=== PATIENT | female | born 1935 | race Caucasian/White ===

== ENCOUNTER 2020-09-16 15:02 | Inpatient (IN) | payer MEDICARE ==
[~2020-09-16] VITALS: Ht 154.9 cm; Wt 50.8 kg
[2020-09-16 14:30] VITALS: BP 156/66
[2020-09-16] MEDS ORDERED: Z GUARD REMEDY PASTE 57 GM TUBE TOP PRN (16:15)
[2020-09-16] MEDS ORDERED: ATOR10TA PO (16:20)
[2020-09-16] MEDS ORDERED: LISI20TA30 PO (16:20)
[2020-09-16] MEDS ORDERED: CLOP75TA33 PO (16:20)
[2020-09-16] MEDS ORDERED: AMLO10TA59 PO (16:20)
--- NOTE | 2020-09-16 18:00 | NUR ---
Admitted this 85y/o female from [facility] with diagnosis of left facial droop r/o CVA, likely TIA. She is alert, oriented to self and place, not in any form of distress on room air. No noted facial droop, with clear speech. No complain of any pain or discomfort. Noted with left hand skin tear and bruises on bilateral upper and right lower extremities. Assisted with her needs promptly. Call light and frequently used items placed within patient's reach. Routine admission care done. Report received from Rob HERNANDEZ from [facility] and per RN patient fell today and X-Ray of the right leg done with negative result. Dr. Simeon and Dr. Ragsdale made aware of the admission. Call light and frequently used items placed within patient's reach. Will continue to monitor and will endorse accordingly.
[2020-09-16 20:21] VITALS: BP 168/68
--- NOTE | 2020-09-17 03:55 | NUR ---
AAOx2-3 Admitted for possible TIA/left facial droop. No facial droop noted. Speech clear. Continent of bowel and bladder. Kept comfortable. Fall precautions maintained. Denies any pain nor any discomfort. Will monitor patient.
[2020-09-17 06:52] VITALS: BP 173/67
[2020-09-17 08:00] VITALS: BP 163/63
[2020-09-17] MEDS: LISINOPRIL 20 MG TABLET PO SCH (08:41)
[2020-09-17] MEDS: AMLODIPINE 10 MG TABLET PO SCH (08:41)
[2020-09-17] MEDS: CLOPIDOGREL 75 MG TABLET PO SCH (08:41)
--- NOTE | 2020-09-17 12:03 | NUR ---
SW Family Contact: This SW contacted patient's person to notify Sun daughter ([phone], however, the number listed on the facesheet is incorrect.
--- NOTE | 2020-09-17 13:23 | NUR ---
COLLIN PH9 Post Stroke Depression Screening: general ii farmworker met with patient and conducted a PHQ-9 (Post Stroke Depression Screening) in which the patient score of a level of 4 for depression. Patient does not require a psychiatric consult at this time.
--- NOTE | 2020-09-17 13:24 | NUR ---
Social Work Stroke Resources: fabric worker leader met with patient and provided stroke referrals such as: Stroke Family Warmline at (5-602-2-STROKE) and additional information on caring for a stroke survivor ( ). fabric worker leader also educated patient on the signs of Stroke and to immediately call 911. fabric worker leader provided education on the signs of stroke and provided educational packet with information: Dietary food, what stroke is, risks, emotional support, finding support, medical management, and effects of stroke.
--- NOTE | 2020-09-17 15:01 | NUR ---
INTERDISCIPLINARY TEAM CONFERENCE
[2020-09-17 16:16] VITALS: BP 149/71
[2020-09-17 20:00] VITALS: BP 148/64
[2020-09-17] MEDS: ATORVASTATIN 10 MG TABLET PO SCH (20:36)
--- NOTE | 2020-09-17 21:54 | NUR ---
Received pt sleeping comfortably. Aroused easily to verbal stimuli. AAO x2-3. No acute distress noted. Denies pain/ discomfort. Due med given as ordered. Safety measures maintained. Bed alarm on. Call light and personal items within reach. Will continue to monitor.
[2020-09-18 05:16] VITALS: BP 140/75
[2020-09-18] MEDS: LISINOPRIL 20 MG TABLET PO SCH (08:59)
[2020-09-18] MEDS: CLOPIDOGREL 75 MG TABLET PO SCH (09:00)
[2020-09-18] MEDS: AMLODIPINE 10 MG TABLET PO SCH (09:00)
[2020-09-18 16:00] VITALS: BP 147/64
--- NOTE | 2020-09-18 19:00 | NUR ---
RECD PT IN BED,ALERT ORIENTED X3, ABLE TO MAKE NEEDS KNOWN.VERY PLEASANT AND COOPERATIVE. NO ACUTE DISTRESS NOTED. KEPT WARM AND COMFORTABLE.
[2020-09-18 20:00] VITALS: BP 130/69
[2020-09-18] MEDS: ATORVASTATIN 10 MG TABLET PO SCH ×2 (21:52→21:54)
[2020-09-19 08:00] VITALS: BP 155/47
[2020-09-19] MEDS: LISINOPRIL 20 MG TABLET PO SCH (09:12)
[2020-09-19] MEDS: CLOPIDOGREL 75 MG TABLET PO SCH (09:12)
[2020-09-19] MEDS: AMLODIPINE 10 MG TABLET PO SCH (09:12)
[2020-09-19 12:23] LABS: BILIRUBIN,TOTAL 0.8 mg/dL (0.2-1.0); CREATININE 1.3 mg/dL (0.6-1.3); MAGNESIUM 2.5 mg/dL (1.8-2.4); PHOSPHOROUS 2.8 mg/dL (2.5-4.9); POTASSIUM 3.8 mmol/L (3.5-5.1); TOTAL PROTEIN, SERUM 6.6 g/dL (6.4-8.2)
[2020-09-19 13:00] LABS: BASOPHILS # (AUTO) 0.1 K/uL (0.0-8.0); BASOPHILS % (AUTO) 0.6 % (0.0-2.0); EOSINOPHILS # (AUTO) 0.6 K/uL (0.0-0.7); EOSINOPHILS % (AUTO) 6.2 % (0.0-7.0); HEMATOCRIT 38.8 % (31.2-41.9); HEMOGLOBIN 12.4 g/dL (10.9-14.3); LYMPHOCYTES % (AUTO) 10.9 % (20.5-51.5); MEAN CORPUSCULAR HEMOGLOBIN 29.7 uug (24.7-32.8); MEAN CORPUSCULAR HGB CONC 32 g/dL (32.3-35.6); MEAN CORPUSCULAR VOLUME 92.8 fL (75.5-95.3); MONOCYTES # (AUTO) 1.1 K/uL (2.0-10.0); MONOCYTES % (AUTO) 11.4 % (0.0-11.0); NEUTROPHILS # (AUTO) 6.8 K/uL (1.8-8.9); NEUTROPHILS % (AUTO) 70.9 % (38.5-71.5); PLATELET COUNT (AUTO) 223 K/uL (179-408); RED BLOOD CELL COUNT(AUTO) 4.19 MIL/uL (3.63-4.92); WHITE BLOOD COUNT (AUTO) 9.6 K/uL (3.8-11.8)
[2020-09-19 14:33] VITALS: BP 146/43
--- NOTE | 2020-09-19 15:13 | NUR ---
INDIVIDUALIZED PLAN OF CARE
--- NOTE | 2020-09-19 19:32 | NUR ---
all medications given as ordered. pt resting in bed, all medications given. will endorse to oncoming nurse
[2020-09-19 20:00] VITALS: BP 127/74
--- NOTE | 2020-09-19 20:00 | NUR ---
OPENING NOTES: PT resting in bed, awake alert and oriented x2-3. PT on RA saturating 98%, no signs of distress noted. Bed in low and locked position, safety precautions in place, will continue to monitor and follow the plan of care.
[2020-09-20 04:00] VITALS: BP 152/60
[2020-09-20 04:26] LABS: EOSINOPHILS % (MANUAL) 6 % (0-8); LYMPHOCYTES % (MANUAL) 11 % (20-40); MONOCYTES % (MANUAL) 10 % (2-10); NEUTROPHILS % (MANUAL) 73 % (42-75)
--- NOTE | 2020-09-20 06:42 | NUR ---
CLOSING NOTES: PT resting in bed, awake alert and oriented x2-3. PT on RA saturating 93%, no signs of distress noted. Bed in low and locked on coming position, safety precautions in place, will continue to monitor and follow the plan of care. Will endorse to shift.
[2020-09-20 08:33] VITALS: BP 157/51
[2020-09-20] MEDS: CLOPIDOGREL 75 MG TABLET PO SCH (08:40)
[2020-09-20] MEDS: AMLODIPINE 10 MG TABLET PO SCH (08:48)
[2020-09-20] MEDS: LISINOPRIL 20 MG TABLET PO SCH (08:49)
[2020-09-20 20:32] VITALS: BP 136/56
[2020-09-20] MEDS: ATORVASTATIN 10 MG TABLET PO SCH (21:28)
--- NOTE | 2020-09-21 04:14 | NUR ---
aaox2-3 Forgetful at times. Patient is hard of hearing. Needs attended. Incontinent of urine and BM. No BM noted this shift. Kept comfortable. Compliant with meds and care. No distress noted. VSS.
[2020-09-21 04:22] VITALS: BP 149/62
[2020-09-21 08:25] LABS: BASOPHILS # (AUTO) 0.1 K/uL (0.0-8.0); BASOPHILS % (AUTO) 0.7 % (0.0-2.0); EOSINOPHILS # (AUTO) 0.4 K/uL (0.0-0.7); EOSINOPHILS % (AUTO) 5.5 % (0.0-7.0); HEMATOCRIT 36.1 % (31.2-41.9); HEMOGLOBIN 11.9 g/dL (10.9-14.3); LYMPHOCYTES # (AUTO) 1.2 K/uL (20.0-40.0); LYMPHOCYTES % (AUTO) 16.2 % (20.5-51.5); MEAN CORPUSCULAR HEMOGLOBIN 30.5 uug (24.7-32.8); MEAN CORPUSCULAR HGB CONC 33 g/dL (32.3-35.6); MEAN CORPUSCULAR VOLUME 92.5 fL (75.5-95.3); MONOCYTES % (AUTO) 13.3 % (0.0-11.0); NEUTROPHILS # (AUTO) 4.8 K/uL (1.8-8.9); NEUTROPHILS % (AUTO) 64.3 % (38.5-71.5); PLATELET COUNT (AUTO) 250 K/uL (179-408); WHITE BLOOD COUNT (AUTO) 7.5 K/uL (3.8-11.8)
[2020-09-21 09:06] LABS: CREATININE 1.2 mg/dL (0.6-1.3); POTASSIUM 4.2 mmol/L (3.5-5.1)
[2020-09-21] MEDS: CLOPIDOGREL 75 MG TABLET PO SCH (10:36)
[2020-09-21] MEDS: AMLODIPINE 10 MG TABLET PO SCH (10:36)
[2020-09-21] MEDS: LISINOPRIL 20 MG TABLET PO SCH (10:36)
[2020-09-21 17:02] VITALS: BP 120/40
[2020-09-21 21:05] VITALS: BP 130/58
[2020-09-21] MEDS: ATORVASTATIN 10 MG TABLET PO SCH (21:30)
--- NOTE | 2020-09-22 04:13 | NUR ---
No significant change or event throughout the shift. Slept comfortably. No acute distress noted. All needs attended to promptly. Safety measures maintained. Call light and personal items within reach. Continue to monitor.
[2020-09-22 05:47] VITALS: BP 116/52
[2020-09-22] MEDS: LISINOPRIL 20 MG TABLET PO SCH (08:51)
[2020-09-22] MEDS: AMLODIPINE 10 MG TABLET PO SCH (08:52)
[2020-09-22] MEDS: CLOPIDOGREL 75 MG TABLET PO SCH (08:52)
[2020-09-22 08:56] VITALS: BP 107/68
[2020-09-22 11:11] LABS: *BILIRUBIN,URIN NEGATIVE (NEGATIVE); *BLOOD, URINE NEGATIVE (NEGATIVE); *CLARITY,URINE CLOUDY (CLEAR); *COLOR,URINE YELLOW (YELLOW); *KETONES,URINE NEGATIVE (NEGATIVE); LEUKOCYTE ESTERASE ,URINE TRACE (NEGATIVE); NITRITE, URINE NEGATIVE (NEGATIVE); PH,URINE 7.5 (5.0-8.0); UGLUCOSE NEGATIVE (NEGATIVE)
[2020-09-22 16:03] VITALS: BP 122/52
[2020-09-22 16:36] LABS: BACTERIA,URINE MODERATE /HPF (NONE SEEN); RBC,URINE 0-3 /HPF (0-3); SQUAMOUS EPITHELIAL CELL,UR FEW /HPF (NONE SEEN); TRIPLE PHOSPHATE CRYSTAL,UR RARE /HPF (NONE SEEN); URINE AMORPHOUS PHOSPHATES FEW /HPF
--- NOTE | 2020-09-22 18:42 | NUR ---
patient in bed, alert oriented x 3. able to make needs known. cooperative and pleasant. no signs of respiratory distress noted. bed in low and locked position. patient tolerated PT well today. will continue to monitor and follow plan of care.
[2020-09-22 20:12] VITALS: BP 118/50
[2020-09-22] MEDS: ATORVASTATIN 10 MG TABLET PO SCH (21:28)
[2020-09-23 04:12] VITALS: BP 123/81
[2020-09-23 08:00] VITALS: BP 118/61
[2020-09-23] MEDS: CLOPIDOGREL 75 MG TABLET PO SCH (09:38)
[2020-09-23] MEDS: LISINOPRIL 20 MG TABLET PO SCH (09:41)
[2020-09-23] MEDS: AMLODIPINE 10 MG TABLET PO SCH (09:41)
[2020-09-23 16:13] VITALS: BP 106/56
[2020-09-23] MEDS: ENSURE ENLIVE (VAN) 240 ML LIQUID PO SCH (19:05)
[2020-09-23 20:00] VITALS: BP 105/47
[2020-09-23] MEDS: ATORVASTATIN 10 MG TABLET PO SCH (20:49)
[2020-09-24 04:00] VITALS: BP 138/50
[2020-09-24] MEDS: CLOPIDOGREL 75 MG TABLET PO SCH (08:23)
[2020-09-24] MEDS: AMLODIPINE 10 MG TABLET PO SCH (08:23)
[2020-09-24] MEDS: LISINOPRIL 20 MG TABLET PO SCH (08:23)
[2020-09-24 08:36] VITALS: BP 150/56
[2020-09-24] MEDS: ENSURE ENLIVE (VAN) 240 ML LIQUID PO SCH ×3 (09:20→17:30)
--- NOTE | 2020-09-24 14:09 | NUR ---
INTERDISCIPLINARY TEAM CONFERENCE
[2020-09-24 15:48] VITALS: BP 104/44
--- NOTE | 2020-09-24 18:55 | NUR ---
No significant changes during shift. Patient kept comfortable. No signs and symptoms of respiratory distress. Needs met. Participates with PT and OT therapy. Will endorse to coming shift and will follow plan of care.
[2020-09-24 20:30] VITALS: BP 114/55
[2020-09-24] MEDS: ATORVASTATIN 10 MG TABLET PO SCH (20:53)
[2020-09-25 04:00] VITALS: BP 145/56
--- NOTE | 2020-09-25 06:19 | NUR ---
Shift End Report: No significant event reported all night, Slept well. Continue current rehab plan of care.
--- NOTE | 2020-09-25 07:00 | NUR ---
received pt resting in bed, bed in low and locked position,bed alarm on, side rails upx2, pt on RA. safety precautions in place, no distress noted. will continue to monitor.
[2020-09-25 07:11] LABS: BASOPHILS # (AUTO) 0.1 K/uL (0.0-8.0); BASOPHILS % (AUTO) 1.2 % (0.0-2.0); EOSINOPHILS # (AUTO) 0.4 K/uL (0.0-0.7); HEMATOCRIT 33.2 % (31.2-41.9); HEMOGLOBIN 11.1 g/dL (10.9-14.3); LYMPHOCYTES % (AUTO) 25.8 % (20.5-51.5); MEAN CORPUSCULAR HEMOGLOBIN 30.9 uug (24.7-32.8); MEAN CORPUSCULAR HGB CONC 34 g/dL (32.3-35.6); MEAN CORPUSCULAR VOLUME 92.4 fL (75.5-95.3); MONOCYTES % (AUTO) 12.9 % (0.0-11.0); NEUTROPHILS # (AUTO) 4.2 K/uL (1.8-8.9); NEUTROPHILS % (AUTO) 55.1 % (38.5-71.5); PLATELET COUNT (AUTO) 333 K/uL (179-408); RED BLOOD CELL COUNT(AUTO) 3.59 MIL/uL (3.63-4.92); WHITE BLOOD COUNT (AUTO) 7.6 K/uL (3.8-11.8)
[2020-09-25 07:24] LABS: CARBON DIOXIDE 27 mmol/L (21-32); CHLORIDE 105 mmol/L (98-107); CREATININE 1.5 mg/dL (0.6-1.3); GLUCOSE 77 mg/dL (74-106); PHOSPHOROUS 3.3 mg/dL (2.5-4.9); POTASSIUM 4.3 mmol/L (3.5-5.1); UREA NITROGEN, BLOOD 24 mg/dL (7-18)
[2020-09-25 07:56] VITALS: BP 156/64
[2020-09-25] MEDS: LISINOPRIL 20 MG TABLET PO SCH (08:58)
[2020-09-25] MEDS: AMLODIPINE 10 MG TABLET PO SCH (08:58)
[2020-09-25] MEDS: CLOPIDOGREL 75 MG TABLET PO SCH (08:58)
[2020-09-25] MEDS: ENSURE ENLIVE (VAN) 240 ML LIQUID PO SCH ×3 (08:59→17:21)
[2020-09-25 14:56] VITALS: BP 123/43
--- NOTE | 2020-09-25 18:49 | NUR ---
pt resting in bed watching tv, bed in low and locked position, bed alarm on. Pt on RA, no signs of distress noted. medications given as ordered. will endorse to oncoming nurse.
[2020-09-25 20:00] VITALS: BP 117/42
[2020-09-25] MEDS: ATORVASTATIN 10 MG TABLET PO SCH (21:04)
--- NOTE | 2020-09-25 22:00 | NUR ---
Received pt resting in bed. AxOx4. No acute distress noted. Denies any main at the moment. No SOB noted. VSS. All due medication administered and tolerated well.All needs attended to, kept clean, dry and comfortable. Safety measures maintained.Call light and all personal items within pt reach. Bed alarm on. Will continue to monitor.
[2020-09-26 06:52] LABS: BASOPHILS # (AUTO) 0.1 K/uL (0.0-8.0); BASOPHILS % (AUTO) 1.2 % (0.0-2.0); EOSINOPHILS # (AUTO) 0.3 K/uL (0.0-0.7); EOSINOPHILS % (AUTO) 4.2 % (0.0-7.0); HEMATOCRIT 32.6 % (31.2-41.9); HEMOGLOBIN 10.8 g/dL (10.9-14.3); LYMPHOCYTES # (AUTO) 1.7 K/uL (20.0-40.0); LYMPHOCYTES % (AUTO) 22.6 % (20.5-51.5); MEAN CORPUSCULAR HEMOGLOBIN 30.6 uug (24.7-32.8); MEAN CORPUSCULAR HGB CONC 33 g/dL (32.3-35.6); MEAN CORPUSCULAR VOLUME 92.2 fL (75.5-95.3); NEUTROPHILS # (AUTO) 4.4 K/uL (1.8-8.9); PLATELET COUNT (AUTO) 340 K/uL (179-408); RED BLOOD CELL COUNT(AUTO) 3.53 MIL/uL (3.63-4.92); WHITE BLOOD COUNT (AUTO) 7.5 K/uL (3.8-11.8)
[2020-09-26 07:02] LABS: CARBON DIOXIDE 29 mmol/L (21-32); CHLORIDE 103 mmol/L (98-107); CREATININE 1.6 mg/dL (0.6-1.3); GLUCOSE 80 mg/dL (74-106); MAGNESIUM 2.1 mg/dL (1.8-2.4); PHOSPHOROUS 3.3 mg/dL (2.5-4.9); POTASSIUM 4.6 mmol/L (3.5-5.1); UREA NITROGEN, BLOOD 32 mg/dL (7-18)
[2020-09-26 10:26] VITALS: BP 125/47
[2020-09-26] MEDS: LISINOPRIL 20 MG TABLET PO SCH (10:26)
[2020-09-26] MEDS: CLOPIDOGREL 75 MG TABLET PO SCH (10:26)
[2020-09-26] MEDS: AMLODIPINE 10 MG TABLET PO SCH (10:26)
[2020-09-26] MEDS: ENSURE ENLIVE (VAN) 240 ML LIQUID PO SCH ×3 (10:28→17:50)
[2020-09-26 16:20] VITALS: BP 121/53
[2020-09-26 20:00] VITALS: BP 149/54
[2020-09-26] MEDS: ATORVASTATIN 10 MG TABLET PO SCH (20:10)
--- NOTE | 2020-09-26 20:35 | NUR ---
No acute distress noted. Pt resting comfortably in bed. Denies any pain at the moment. No SOB noted. VSS. All due medication administered and tolerated well. All needs attended to, kept clean, dry and comfortable. Applied warm blanket for comfort. Both heels offloaded with pillow. Safety measures maintained.Call light and all personal items within pt reach. Bed alarm on. Will continue to monitor through the night.
[2020-09-27 04:28] VITALS: BP 148/57
[2020-09-27 08:58] VITALS: BP 128/62
[2020-09-27] MEDS: LISINOPRIL 20 MG TABLET PO SCH (09:54)
[2020-09-27] MEDS: AMLODIPINE 10 MG TABLET PO SCH (09:54)
[2020-09-27] MEDS: CLOPIDOGREL 75 MG TABLET PO SCH (09:54)
[2020-09-27] MEDS: ENSURE ENLIVE (VAN) 240 ML LIQUID PO SCH ×3 (09:55→18:08)
[2020-09-27 12:44] LABS: CARBON DIOXIDE 29 mmol/L (21-32); CHLORIDE 103 mmol/L (98-107); CREATININE 1.6 mg/dL (0.6-1.3); GLUCOSE 87 mg/dL (74-106); MAGNESIUM 2.3 mg/dL (1.8-2.4); PHOSPHOROUS 3.3 mg/dL (2.5-4.9); POTASSIUM 4.8 mmol/L (3.5-5.1); UREA NITROGEN, BLOOD 29 mg/dL (7-18)
[2020-09-27 12:56] LABS: BASOPHILS # (AUTO) 0.1 K/uL (0.0-8.0); BASOPHILS % (AUTO) 1.2 % (0.0-2.0); EOSINOPHILS # (AUTO) 0.3 K/uL (0.0-0.7); EOSINOPHILS % (AUTO) 3.6 % (0.0-7.0); HEMATOCRIT 34.1 % (31.2-41.9); HEMOGLOBIN 11.2 g/dL (10.9-14.3); LYMPHOCYTES # (AUTO) 1.4 K/uL (20.0-40.0); MEAN CORPUSCULAR HEMOGLOBIN 30.1 uug (24.7-32.8); MEAN CORPUSCULAR HGB CONC 33 g/dL (32.3-35.6); MEAN CORPUSCULAR VOLUME 91.8 fL (75.5-95.3); MONOCYTES # (AUTO) 0.9 K/uL (2.0-10.0); MONOCYTES % (AUTO) 12.5 % (0.0-11.0); NEUTROPHILS # (AUTO) 4.9 K/uL (1.8-8.9); NEUTROPHILS % (AUTO) 64.7 % (38.5-71.5); PLATELET COUNT (AUTO) 354 K/uL (179-408); RED BLOOD CELL COUNT(AUTO) 3.71 MIL/uL (3.63-4.92); WHITE BLOOD COUNT (AUTO) 7.5 K/uL (3.8-11.8)
[2020-09-27 20:12] VITALS: BP 113/49
[2020-09-27] MEDS: ATORVASTATIN 10 MG TABLET PO SCH (20:39)
[2020-09-28 04:06] VITALS: BP 136/52
[2020-09-28 07:07] LABS: BASOPHILS # (AUTO) 0.1 K/uL (0.0-8.0); BASOPHILS % (AUTO) 1.3 % (0.0-2.0); EOSINOPHILS # (AUTO) 0.4 K/uL (0.0-0.7); EOSINOPHILS % (AUTO) 4.8 % (0.0-7.0); HEMATOCRIT 31.9 % (31.2-41.9); HEMOGLOBIN 10.7 g/dL (10.9-14.3); LYMPHOCYTES # (AUTO) 1.8 K/uL (20.0-40.0); LYMPHOCYTES % (AUTO) 23.8 % (20.5-51.5); MEAN CORPUSCULAR HEMOGLOBIN 30.7 uug (24.7-32.8); MEAN CORPUSCULAR HGB CONC 33 g/dL (32.3-35.6); MEAN CORPUSCULAR VOLUME 91.9 fL (75.5-95.3); MONOCYTES # (AUTO) 0.9 K/uL (2.0-10.0); MONOCYTES % (AUTO) 12.2 % (0.0-11.0); NEUTROPHILS # (AUTO) 4.5 K/uL (1.8-8.9); NEUTROPHILS % (AUTO) 57.9 % (38.5-71.5); PLATELET COUNT (AUTO) 338 K/uL (179-408); RED BLOOD CELL COUNT(AUTO) 3.47 MIL/uL (3.63-4.92); WHITE BLOOD COUNT (AUTO) 7.7 K/uL (3.8-11.8)
[2020-09-28 07:21] LABS: CARBON DIOXIDE 28 mmol/L (21-32); CHLORIDE 105 mmol/L (98-107); CREATININE 1.5 mg/dL (0.6-1.3); GLUCOSE 79 mg/dL (74-106); MAGNESIUM 2.2 mg/dL (1.8-2.4); PHOSPHOROUS 3.4 mg/dL (2.5-4.9); POTASSIUM 5.1 mmol/L (3.5-5.1); UREA NITROGEN, BLOOD 32 mg/dL (7-18)
--- NOTE | 2020-09-28 07:45 | NUR ---
Received pt in bed, awake. A&O x3, able to make needs known. No SOB, no s/s of acute distress noted. Pt denies pain or discomfort at this time. Belongings and call light within reach, reinforced usage, pt verbalized understanding. Bed low and in locked position, bed alarm on, safety measures in place. Will continue to monitor.
[2020-09-28] MEDS: CLOPIDOGREL 75 MG TABLET PO SCH (08:53)
[2020-09-28] MEDS: ENSURE ENLIVE (VAN) 240 ML LIQUID PO SCH ×3 (08:56→18:21)
[2020-09-28] MEDS: AMLODIPINE 10 MG TABLET PO SCH (08:56)
[2020-09-28 13:00] VITALS: BP 126/60
[2020-09-28 16:30] VITALS: BP 140/47
--- NOTE | 2020-09-28 19:30 | NUR ---
EOSS: Pt in bed. A&O x3, able to make needs known. On RA, no SOB, no s/s of acute distress noted. Medications administered per order. Care given per order. All needs met. Pt worked with physical therapy today, tolerated well. Belongings and call light within reach. Bed low and in locked position, bed alarm on, safety measures and fall precautions in place. Will endorse care to car shifter.
[2020-09-28 20:00] VITALS: BP 132/57
[2020-09-28] MEDS: ATORVASTATIN 10 MG TABLET PO SCH (20:27)
[2020-09-29 04:00] VITALS: BP 148/63
[2020-09-29 08:00] VITALS: BP 137/57
[2020-09-29] MEDS: AMLODIPINE 10 MG TABLET PO SCH (08:32)
[2020-09-29] MEDS: CLOPIDOGREL 75 MG TABLET PO SCH (08:32)
[2020-09-29] MEDS: ENSURE ENLIVE (VAN) 240 ML LIQUID PO SCH ×3 (08:35→18:48)
[2020-09-29 15:25] VITALS: BP 128/47
[2020-09-29 20:00] VITALS: BP 139/55
[2020-09-29] MEDS: ATORVASTATIN 10 MG TABLET PO SCH (20:46)
[2020-09-30 04:00] VITALS: BP 134/58
--- NOTE | 2020-09-30 06:18 | NUR ---
Shift End Report: Vs stable. Slept well. No significant event reported all night. All needs attended and met. No complaint presented throughout the night. Continue current rehab plan of care.
[2020-09-30 08:00] VITALS: BP 131/53
[2020-09-30] MEDS: CLOPIDOGREL 75 MG TABLET PO SCH (08:27)
[2020-09-30] MEDS: AMLODIPINE 10 MG TABLET PO SCH (08:28)
[2020-09-30] MEDS: ENSURE ENLIVE (VAN) 240 ML LIQUID PO SCH ×3 (08:37→17:30)
[2020-09-30 15:19] VITALS: BP 139/48
--- NOTE | 2020-09-30 18:05 | NUR ---
Patient remains alert, oriented x3 not in any form of distress, on room air. She denies any pain or discomfort. Patient is compliant with medications and tolerated well. Needs attended to promptly. Call light and frequently used items placed within patient's reach.
[2020-09-30 20:00] VITALS: BP 127/57
[2020-09-30] MEDS: ATORVASTATIN 10 MG TABLET PO SCH (20:05)
--- NOTE | 2020-09-30 21:03 | NUR ---
Received pt sleeping in bed. Aroused easily to verbal stimuli. AAO x3. No acute distress noted. Denies pain/ discomfort. Due med given as ordered. Safety measures maintained. Call light and personal items within reach. Will continue to monitor.
[2020-10-01 04:00] VITALS: BP 136/63
--- NOTE | 2020-10-01 07:30 | NUR ---
Received pt in bed, awake. A&O x3, able to verbalize needs. No s/s of acute distress noted. Pt denies pain/discomfort. Belongings and call light within reach, reinforced usage, pt verbalized understanding. Bed low and in locked position, bed alarm on, safety measures in place. Will continue to monitor.
[2020-10-01 08:29] VITALS: BP 144/59
[2020-10-01] MEDS: CLOPIDOGREL 75 MG TABLET PO SCH (09:05)
[2020-10-01] MEDS: AMLODIPINE 10 MG TABLET PO SCH (09:05)
[2020-10-01] MEDS: ENSURE ENLIVE (VAN) 240 ML LIQUID PO SCH ×3 (09:05→17:35)
--- NOTE | 2020-10-01 14:20 | NUR ---
INTERDISCIPLINARY TEAM CONFERENCE
[2020-10-01 15:11] VITALS: BP 122/48
--- NOTE | 2020-10-01 19:22 | NUR ---
EOSS: Pt in resting bed, no acute distress. No acute changes during shift. Able to make needs known, attended to promptly. Medications administered per order. Care given per order. Patient ambulate with PT, tolerated well. Belongings and call light within reach. Bed low and in locked position, bed alarm on, safety measures and fall precautions in place. Will endorse care to night auditor.
[2020-10-01] MEDS: ATORVASTATIN 10 MG TABLET PO SCH (20:05)
[2020-10-01 20:18] VITALS: BP 129/67
--- NOTE | 2020-10-01 20:19 | NUR ---
Received pt resting in bed. AAO x2-3, with episodes of forgetfulness. No acute distress noted. Denies pain/ discomfort. Due med given as ordered. Safety measures maintained. Call light and personal items within reach. Will continue to monitor.
[2020-10-02 04:00] VITALS: BP 121/65
[2020-10-02 08:00] VITALS: BP 122/50
[2020-10-02 08:38] VITALS: BP 122/50
[2020-10-02] MEDS: CLOPIDOGREL 75 MG TABLET PO SCH (08:38)
[2020-10-02] MEDS: AMLODIPINE 10 MG TABLET PO SCH (08:38)
[2020-10-02] MEDS: ENSURE ENLIVE (VAN) 240 ML LIQUID PO SCH ×2 (08:39→13:47)
--- NOTE | 2020-10-02 15:07 | NUR ---
patient discharged home with daughter in private care, assisted to the care safely, patient is alert, stable condition, oriented x3, no sob, resp even nonlabored,skin warm and dry to touch, stand by assist, discharge instructions given to patient, patient verbalized understanding of it.
== END 2020-10-02 15:10 | disposition home health service (06) | DRG 56 ==
PROVIDERS: ADMIT Physical Medicine & Rehabilitation Pain Medicine; ATTEND Physical Medicine & Rehabilitation Pain Medicine
DX: I69.892 Facial weakness following other cerebrovascular disease (principal); N17.0 Acute kidney failure with tubular necrosis; E43 Unspecified severe protein-calorie malnutrition; G93.41 Metabolic encephalopathy; I69.898 Other sequelae of other cerebrovascular disease; R53.1 Weakness; I69.891 Dysphagia following other cerebrovascular disease; R13.10 Dysphagia, unspecified; E78.5 Hyperlipidemia, unspecified; I10 Essential (primary) hypertension; N13.9 Obstructive and reflux uropathy, unspecified; M06.9 Rheumatoid arthritis, unspecified; R41.89 Other symptoms and signs involving cognitive functions and awareness; F03.90 Unspecified dementia, unspecified severity, without behavioral disturbance, psychotic disturbance, mood disturbance, and anxiety; I25.10 Atherosclerotic heart disease of native coronary artery without angina pectoris; I65.22 Occlusion and stenosis of left carotid artery; K21.9 Gastro-esophageal reflux disease without esophagitis; R26.89 Other abnormalities of gait and mobility; Z88.8 Allergy status to other drugs, medicaments and biological substances
CPT/HCPCS: 36415; 70030-TC; 83735; 84100; 85025; 87086; C1758